=== PATIENT | female | born 1985 | race Caucasian/White ===

== ENCOUNTER → 2020-12-07 00:38 | Outpatient (CLI) | payer BC, SELFPAY | PROVIDERS: PCP Internal Medicine; Visit Provider Obstetrics & Gynecology | DX: Z01.812 Encounter for preprocedural laboratory examination (principal); Z20.822 Contact with and (suspected) exposure to COVID-19 | CPT/HCPCS: C9803; U0003; U0005 ==

== ENCOUNTER 2020-12-07 08:42 | Outpatient (CLI) | payer BC, SELFPAY | END 2020-12-07 08:43 | disposition home or self-care (01) | PROVIDERS: PCP Nurse Practitioner Family; Visit Provider Obstetrics & Gynecology | DX: N92.0 Excessive and frequent menstruation with regular cycle (principal); Z01.818 Encounter for other preprocedural examination | CPT/HCPCS: 36415; 86850; 86900; 86901 ==

== ENCOUNTER 2020-12-10 00:07 | Day surgery (SDC) | payer BC, SELFPAY ==
[2020-11-27 13:22] VITALS: BMI 39.4
--- NOTE | 2020-12-09 12:21 | WPDANESEPPF ---
Anes - Initial Pre Proc Eval Procedure: Operation Date: 12/10/20 07:30 Proposed Procedures p Total Laparoscopic Hysterectomy with Bilateral Salpingectomy - Arcadio Sousa MD Date/Time: 12/09/20 12:21 Surgeon: Arcadio Sousa MD Pre Op Diagnosis: menorrhaghia Patient Data Age: 35 Gender: F Height: 1.57 m Weight: 97.72 kg Allergies Allergy/AdvReac Type Severity Reaction Status Date / Time codeine Allergy Unknown Hives / Verified 11/27/20 13:20 Red Face sulfamethizole Allergy Unknown HIVES/ RED Verified 11/27/20 13:20 FACE sulfamethoxazole Allergy Unknown Hives / Verified 11/27/20 13:20 Red Face trimethoprim Allergy Unknown Hives / Verified 11/27/20 13:20 Red Face Home Medications Medication Instructions Recorded Confirmed Type brexpiprazole [Rexulti] 1 mg QAM 11/27/20 11/27/20 History doxycycline hyclate 100 mg BID 11/27/20 11/27/20 History spironolactone 100 mg BID 11/27/20 11/27/20 History Patient hx anesthesia problems: none Family hx anesthesia problems: none PMFSH Past Medical History Medical History (Updated 12/09/20 @ 12:22 by Juan Gonzalez MD) Abnormal uterine bleeding Anxiety Depression Migraine Obesity Family History Family History (System 11/21/20 @ 11:21 by Nick Soto) Father Family history of elevated blood lipids Family history of diabetes mellitus in first degree relative Family history of coronary artery disease Social History Social History (System 11/21/20 @ 11:21 by Nick Soto) Smoking packs per day: 0.5 Smoking cigarettes per day: 10.0 Years smoked: 15 Smoking pack-years: 7.50 Smoking status: Current every day smoker Tobacco type: cigarettes Second hand tobacco smoke exposure: Yes Alcohol intake: never Drinks per week: 8 Substance use: never Substance use type: does not use Living arrangements: with family Spiritual care concerns: No Anes - Eval Final PreProcedure Day of Procedure 12/09/20 12:21 Patient weight: overweight Heart: regular rate and rhythm Lungs: clear to auscultation and normal air movement Airway: Mallampati scale class II Neurological: alert and oriented Last oral intake: >/= 8 hours ASA classification: II Emergent: no Anesthetic plan: proceed Anesthesia type and monitoring: general ETT Informed Consent: The patient's anesthetic plan and its attendant risks and benefits were discussed with the patient/family/POA. Questions were solicited and answers provided to the satisfaction of the patient/family/POA.
[2020-12-10] VITALS (10 sets, daily range): BP systolic 100–125; BP diastolic 58–88; PULSE 56–97; RESP 12–18; TEMP 36–37.1; O2SAT 90–100; BMI 40.3
[2020-12-10 06:24] LABS: EDCOVIDSCREEN Negative (Negative)
--- NOTE | 2020-12-10 07:11 | WPDHPUPDATE1 ---
History and Physical Update Update Date/Time: 12/10/20 07:11 History and Physical has been reviewed, including an updated exam of the patient. There are NO changes in the patient's condition. Risks, benefits, and alternatives have been discussed and questions answered. Patient agrees to proceed with procedure.
[2020-12-10] MEDS: LACTATED RINGERS 1,000 ML 30 ML IV CONT ×2 (07:15→09:49)
[2020-12-10] MEDS: ACETAMINOPHEN 500 MG TABLET 1000 MG PO (07:15)
[2020-12-10] MEDS: KETOROLAC 15 MG/ML VIAL (*BKC) IV PUSH (07:16)
[2020-12-10] MEDS: ceFAZolin 2 GM/D5W 50 ML 2 GM/50 ML BAG IVPB (07:31)
--- NOTE | 2020-12-10 09:57 | P.OP_ITS ---
Procedure Note - Detailed Date of Procedure 12/10/20 Pre-op Diagnosis menorrhaghia Post-op Diagnosis same (endometriosis) Procedure Performed Total laparoscopic hysterectomy and bilateral salpingectomy. pelvic peritoneum Bx Surgeon Arcadio Sousa MD Anesthesia general Indications Severe menometrorrhagia, Findings pelvic endometriotic lesion, enlarged fibroid uterus, normal ovaries and tubes Description of Procedure This patient was taken to the operating room. She was prepped and draped in the dorsal lithotomy position after induction of general anesthesia. A 5 mm skin incision was made in the left upper quadrant the abdomen. A 5 mm trocar was inserted into the intrauterine cavity under direct visualization of the scope. Pneumoperitoneum was achieved. A left lower quadrant 11 mm incision was made wi th scalpel. An 11 mm trocar was inserted into the anterior abdominal cavity under direct visualization the scope. A 5 mm infraumbilical incision was made with a scalpel and a 5 mm trocar was inserted the intra-abdominal cavity under direct visualization of the scope. The uterine manipulator and Coke per were placed. This was done with a speculum. The speculum was placed. The cervix was grasped with a tenaculum. The stay sutures were placed at 3 and 9:00 a.m.. The stay sutures of 0 Vicryl were brought through the appropriately sized [place] cup. The tip of the VARINDER manipulator was placed in the intrauterine cavity. The cup was slid into place around the cervix and into the fornices. It was locked into place. The sutures were then wrapped around the handle and tied under tension. Bilateral ureteral lysis was performed. This was done from the pelvic brim down to the uterine artery. This was done with careful dissection using sharp and blunt dissection. The fallopian tubes were removed bilaterally. The mesosalpinx around the fallopian tubes were cauterized transected with LigaSure cautery. This was done in a bilateral fashion from the ovary to the uterine cornua. The fallopian tube was transected at the uterine cornu and amputated. The tube was taken out the left lower quadrant trocar site. In a stepwise fashion along the lateral aspects of the uterus the round ligament and broad ligaments were cauterized transected down to the level of the uterine arteries. A bladder flap was created in the bladder was moved distally to the end of the cervix and over the [place] cup. The bilateral uterine arteries were cauterized and transected. Colpotomy was then performed. In a circumferential fashion the vagina was transected using unipolar cautery. The incision was made down on the [place]. The uterus and cervix were taken out through the vagina. A pneumo occluder was placed in the vagina. The vaginal cuff was closed with a 0 V lock suture. The pelvis was irrigated with copious amounts antibiotic irrigation. The ureters were again examined and found to be intact and flowing freely under the uterine arteries into the bladder. The bladder was intact. It was examined directly. The vagina was irrigated with Betadine solution after removal of the Pneumo occluder. The patient was taken to recovery room. She was stable condition. Sponge lap and needle counts were correct x2. Estimated Blood Loss 150 Drains Yes Packing No Pathology yes Complications No immediate complications Condition stable Disposition floor
[2020-12-10] MEDS: fentaNYL CITRATE INJ (*CRX) 100 MCG/2 ML VIAL 25 MCG IV PUSH ×4 (10:15→10:46)
--- NOTE | 2020-12-10 11:17 | PC.NURSE ---
This patient, Leonor Gipson, was received from PACU on 12/10/20 at 1117. Patient/family oriented to unit policies and routines
[2020-12-10] MEDS: DEXTROSE 5%/LACTATED RINGERS 1,000 ML 125 ML IV CONT (11:52)
[2020-12-10] MEDS: KETOROLAC 30 MG/ML VIAL (*BKC) IV PUSH (13:56)
[2020-12-10] MEDS: HYDROcodone/acetaminophen (*CRX) 5-325 MG TABLET 1 TAB PO ×2 (18:44→22:03)
[2020-12-10] MEDS: ZOLPIDEM TARTRATE (*CRX) 5 MG TABLET 10 MG PO (22:08)
[2020-12-10] MEDS: SIMETHICONE 80 MG TAB.CHEW PO (22:37)
[2020-12-11 04:30] VITALS: BP 101/63; PULSE 88; RESP 18; TEMP 36.8; O2SAT 97
--- NOTE | 2020-12-11 07:22 | WPDANESPN ---
Anes - Prog Note Post-Op Date/Time: 12/11/20 07:22 Cardiovascular status: normal Respiratory status: normal Airway patency: baseline Mental status: baseline Post-Op hydration status: normal Vital Signs: Last Vital Signs Temp 36.8 C 12/11/20 04:30 Pulse 88 12/11/20 04:30 Resp 18 12/11/20 04:30 BP 101/63 12/11/20 04:30 Pulse Ox 97 12/11/20 04:30 Pain Score (VAS): 2/10 I/O: Intake & Output 12/10/20 12/10/20 12/11/20 15:59 23:59 07:59 Intake Total 1140 400 Output Total 925 300 Balance 215 100 Post-procedural complaints: none Patient Feedback: Patient satisfied with anesthetic care.
[2020-12-11 08:15] VITALS: BP 128/88; PULSE 87; RESP 18; TEMP 36.6; O2SAT 95
[2020-12-11] MEDS: HYDROcodone/acetaminophen (*CRX) 5-325 MG TABLET 1 TAB PO (08:27)
[2020-12-11] MEDS: SIMETHICONE 80 MG TAB.CHEW PO (08:27)
--- NOTE | 2020-12-11 10:10 | PM.GYNPNOP ---
[employer] - A/P Postoperative Procedures: Procedures Operation Date: 12/10/20 07:30 Actual Procedure Side Surgeon p Total Laparoscopic Hysterectomy with Bilateral Salpingectomy and biopsy of pelvic lesion Bilateral Arcadio Sousa MD Postoperative day: 1 Postoperative status: doing well and other (Tollerating Regular Diet) Postoperative plan: routine post-op care and discharge Time Spent With Patient Time: Total time spent is greater than 50% in coordination of care (as documented) at patient's floor/unit and/or counseling patient: Time with patient: 15 - 25 minutes [employer]- PN:Subj Post-Op Subjective Date/time seen: 12/11/20 10:10 Subjective: patient reports feeling better, pain is well controlled and patient is tolerating oral intake Exam Const: General: cooperative, healthy appearing, comfortable and no acute distress Resp: Auscultation: no crackles, no rales, no rhonchi and no wheezes Cardio: Rhythm: regular rhythm Heart sounds: no click and no murmurs GI: Inspection: non-distended Auscultation: normal bowel sounds Other: Incisions - CDI Extrem: General: normal to inspection, no pedal edema and no calf tenderness [employer] - PN: Obj Data Vital Signs Vital Signs: Vital Signs - 24 hr 12/10/20 10:25 12/10/20 10:40 12/10/20 10:55 Temperature Pulse Rate 80 77 66 Respiratory Rate 14 16 12 Blood Pressure 112/64 117/77 102/69 Pulse Oximetry 95 94 100 12/10/20 11:25 12/10/20 17:10 12/10/20 20:20 Temperature 98.0 F 97.9 F 98.7 F Pulse Rate 56 L 97 96 Respiratory Rate 16 18 18 Blood Pressure 120/58 L 125/76 117/73 Pulse Oximetry 90 95 12/10/20 23:50 12/11/20 04:30 Temperature 98.5 F 98.3 F Pulse Rate 84 88 Respiratory Rate 16 18 Blood Pressure 100/61 101/63 Pulse Oximetry 96 97 Intake/Output Intake/Output: Intake & Output 12/08/20 12/09/20 12/10/20 12/11/20 23:59 23:59 23:59 23:59 Intake Total 1540 Output Total 1225 Balance 315 Meds/Results Medications: Active Medications Generic Name Dose Route Start Last Admin Trade Name Freq PRN Reason Stop Dose Admin Hydrocodone Bitart/Acetaminophen 1 tab 12/10/20 11:12 12/11/20 08:27 Hydrocodone/Acetaminophen (*Crx) 5-325 Mg Tablet PO 1 tab Q3H PRN Administration Pain Rated 5 or Less Hydrocodone Bitart/Acetaminophen 1 tab 12/10/20 11:12 Hydrocodone/Acetaminophen (*Crx) 10-325 Mg Tablet PO Q3H PRN Pain Rated 6 or Greater Ibuprofen 600 mg 12/10/20 11:12 Ibuprofen 600 Mg Tablet PO Q6H PRN Cramping Ketorolac Tromethamine 30 mg 12/10/20 11:12 12/10/20 13:56 Ketorolac 30 Mg/Ml Vial (*Bkc) IV PUSH 12/15/20 11:13 30 mg Q6H PRN Administration Pain Rated 4-6 Naloxone HCl 0.1 mg 12/10/20 11:12 Naloxone Hcl 0.4 Mg/Ml Vial IV PUSH Q2M PRN Respiratory rate less than 10 Ondansetron HCl 4 mg 12/10/20 11:12 Ondansetron Inj 4 Mg/2 Ml Vial IV PUSH Q6H PRN Nausea And Vomiting Simethicone 80 mg 12/10/20 22:06 12/11/20 08:27 Simethicone 80 Mg Tab.Chew PO 80 mg Q2H PRN Administration Gas Discomfort Zolpidem Tartrate 10 mg 12/10/20 20:24 12/10/20 22:08 Zolpidem Tartrate (*Crx) 5 Mg Tablet PO 10 mg HS PRN Administration Insomnia
== END 2020-12-11 10:19 | disposition home or self-care (01) ==
LOC: ANHSURGERY 06:25 → ANHOB2 11:14
PROVIDERS: PCP Nurse Practitioner Family; Visit Provider Obstetrics & Gynecology
PROC: 0UT9FZZ Resection of Uterus, Via Natural or Artificial Opening With Percutaneous Endoscopic Assistance (ICD-10-PCS; CPT 58571; principal; 2020-12-10 07:30)
DX: N92.1 Excessive and frequent menstruation with irregular cycle (principal); N80.3 Endometriosis of pelvic peritoneum; N94.89 Other specified conditions associated with female genital organs and menstrual cycle; N80.0 Endometriosis of uterus; D25.0 Submucous leiomyoma of uterus; D25.2 Subserosal leiomyoma of uterus; N70.11 Chronic salpingitis; N83.8 Other noninflammatory disorders of ovary, fallopian tube and broad ligament; F41.8 Other specified anxiety disorders; F17.210 Nicotine dependence, cigarettes, uncomplicated; E66.9 Obesity, unspecified; Z68.41 Body mass index [BMI] 40.0-44.9, adult; Z20.822 Contact with and (suspected) exposure to COVID-19
CPT/HCPCS: 58571; 36415; 87426; 88305; 88307; 99199; A9270; C9803; J0330; J0690; J1100; J1885; J2250; J2405; J2704; J3010; J7030; J7120; J7121

== ENCOUNTER 2021-11-04 08:10 | Emergency (ER) | payer BC, SELFPAY ==
--- NOTE | 2021-11-04 08:11 | ED.SKABFB ---
HPI - Skin/Abscess/Foreign Bdy General Chief complaint: Skin/Abscess/Foreign Body Stated complaint: Skin Problem Time Seen by Provider: 11/04/21 08:10 Source: patient Mode of arrival: ambulatory Limitations: no limitations History of Present Illness HPI narrative: Ms. Osborn is a 36-year-old female patient presenting to the clinic today with complaints of a rash to the low back/sacral area. She reports that this rash started yesterday. Reports that the rash is painful and burning. Is concerned that she may have shingles. Related Data Home Medications Medication Instructions Recorded Confirmed L norgest/e.estradiol-e.estrad 1 tablet PO DAILY 11/04/21 11/04/21 Allergies Allergy/AdvReac Type Severity Reaction Status Date / Time codeine Allergy Unknown Itching Verified 11/04/21 08:23 sulfamethizole Allergy Unknown HIVES/ RED Verified 11/04/21 08:23 FACE sulfamethoxazole Allergy Unknown Hives / Verified 11/04/21 08:23 Red Face trimethoprim Allergy Unknown Hives / Verified 11/04/21 08:23 Red Face Review of Systems Review of Systems: Pertinent positives per HPI. Patient denies any fever, chills, headache, visual changes, dizziness, cough, runny nose, sore throat, shortness of breath, chest pain, palpitations, nausea, vomiting, diarrhea, constipation, abdominal pain, or any urinary issues. FORMERLY [facility], [facility]–1983 Past Medical History Medical History Abnormal uterine bleeding Anxiety Depression Migraine Obesity Family History Family History Father Family history of elevated blood lipids Family history of diabetes mellitus in first degree relative Family history of coronary artery disease Social History Social History Smoking packs per day: 0.5 Smoking cigarettes per day: 10.0 Years smoked: 15 Smoking pack-years: 7.50 Smoking status: Current every day smoker Tobacco type: cigarettes Second hand tobacco smoke exposure: Yes Alcohol intake: never Drinks per week: 8 Substance use: never Substance use type: does not use Spiritual care concerns: No Comments At the time of my signature, I reviewed and agree with the nursing past medical, surgical, social, and family history. There is no relevant family history pertinent to the patient complaint. Exam Narrative: General: Well-developed, well nourished, in no apparent distress Head: Normocephalic, atraumatic. Cardio: Regular rate and rhythm, s1 and s2 normal, no murmur appreciated. Resp: Clear to auscultation bilaterally, no rhonchi, rales, wheezing or rubs. Integumentary: [place], warm, and dry, intact without lesion, erythemic base with blistered, vesicular rash to the sacrum that is spreading to the right buttock. Rash is painful and burning. Course Course Emergency Course: Portions of this record may have been created with voice recognition software. Level of Care: Express Care Visit Vital Signs Vital signs: Vital Signs Temperature 36.9 C 11/04/21 08:17 Pulse Rate 96 11/04/21 08:17 Respiratory Rate 20 11/04/21 08:17 Blood Pressure 148/94 H 11/04/21 08:17 Pulse Oximetry 96 11/04/21 08:17 Temperature 36.9 C 11/04/21 08:32 Pulse Rate 96 11/04/21 08:32 Respiratory Rate 20 11/04/21 08:32 Blood Pressure 148/94 H 11/04/21 08:32 Pulse Oximetry 96 11/04/21 08:32 Vital signs reviewed MDM - Skin/Abscess/Foreign Bdy MDM Narrative Medical decision making narrative: At the time of visit patient was resting comfortably on the exam table. Patient has a erythemic base rash with vesicular lesions to the sacrum area that is spreading to the right upper buttock. Rash is painful and burning. I suspect that the patient has shingles. We will treat with a course of acyclovir and lidocaine cream. Discharge instructions and supportive me
[2021-11-04 08:17] VITALS: BP 148/94; PULSE 96; RESP 20; TEMP 36.9; O2SAT 96
[2021-11-04 08:32] VITALS: BP 148/94; PULSE 96; RESP 20; TEMP 36.9; O2SAT 96
== END 2021-11-04 08:35 | disposition home or self-care (01) ==
PROVIDERS: Emergency Provider Nurse Practitioner Family
DX: B02.9 Zoster without complications (principal); F17.210 Nicotine dependence, cigarettes, uncomplicated; E66.9 Obesity, unspecified; Z68.39 Body mass index [BMI] 39.0-39.9, adult
CPT/HCPCS: 99213; G0463